=== PATIENT | female | born 1985 | race Caucasian/White ===

== ENCOUNTER → 2019-03-08 | Day surgery (SDC) | payer BC ==
[~2019-03-08] MED LIST: ANUCORT-HC25 MG PR; ATIVAN1 MG PO; FENTANYL CITRATE/PF 100MCG/2 ML INJ ONE; HYOSCYAMINE 0.125 MG TAB ONE; KETAMINE HCL INJ 50 MG/ML 10 ML VIAL ONE; LUTERA1 EACH PO; MIDAZOLAM HCL 2 MG/2 ML VIAL ONE; NITROFURANTOIN100 MG PO; PHENERGAN PO; PROPOFOL IV EMULSION 10 MG/ML 50 ML VIAL ONE; PROZAC40 MG PO
--- NOTE | 2019-03-08 19:45 | Operative Report ---
DATE OF PROCEDURE: 03/08/2019 SURGEON: Campos Heart MD PROCEDURE: Colonoscopy with polypectomy. INDICATIONS FOR COLONOSCOPY: Rectal bleeding, lower abdominal pain, personal history of colon polyps. MEDICATIONS: The patient was done under MAC, please see anesthesiologist's note. PROCEDURE IN DETAIL: With the patient in left lateral decubitus position, the flexible fiberoptic Olympus colonoscope was inserted into the rectum with ease and advanced all the way to the cecum. It was then withdrawn slowly and the mucosa overlying the cecum, ascending colon, transverse colon, and descending colon grossly appeared to be within normal limits. One polyp was hot biopsied from the sigmoid colon. The rest of the sigmoid and the rectum grossly appeared to be within normal limits. The scope was then retroflexed into the distal rectum and small internal hemorrhoids were noted, none of which was actively bleeding. The scope was then straightened out, it was subsequently withdrawn, and an anal fissure was noted on the way out. There was no active bleeding. The patient tolerated procedure well. IMPRESSION: 1. Sigmoid colon polyp, hot biopsied. 2. Internal hemorrhoids, none actively bleeding. 3. Anal fissure. PLAN: Follow up histology. Initiate high-fiber supplement. Start Visbiome 1 one p.o. b.i.d. Continue Anusol-HC suppositories b.i.d. x10 days and p.r.n. The patient might benefit from a followup colonoscopy in 5 years. Campos Heart MD [facility] [place] /[id number] cc: Bob Hamilton MD
== END | disposition home or self-care (01) ==
LOC: OR 13:09
PROVIDERS: ATTEND Internal Medicine Gastroenterology
DX: K64.4 Residual hemorrhoidal skin tags (principal); K63.5 Polyp of colon; K60.2 Anal fissure, unspecified; K59.09 Other constipation; K64.8 Other hemorrhoids; R03.0 Elevated blood-pressure reading, without diagnosis of hypertension; Z88.6 Allergy status to analgesic agent; Z68.36 Body mass index [BMI] 36.0-36.9, adult
CPT/HCPCS: 45384; 81025; J2250; J2704; J3010